=== PATIENT | female | born 1950 | race Caucasian/White ===

== ENCOUNTER 2021-03-15 18:34 | Inpatient (IN) ==
[2021-03-15] MEDS ORDERED: Naloxone 0.4 MG/ML INJ IVP PRN (23:51)
[2021-03-15] MEDS ORDERED: Acetaminophen 325 MG TABLET PO PRN (23:51)
[2021-03-16] MEDS: Ondansetron 4 MG/2 ML VIAL IVP PRN ×3 (00:47→23:01)
[2021-03-16] MEDS ORDERED: *HR* Dextrose 50 % in Water (Vial) 50 ML VIAL IVP PRN (01:15)
[2021-03-16] MEDS ORDERED: Dextrose Gel 15 GM/37.5 ML TUBE PO PRN ×2 (01:15)
[2021-03-16] MEDS ORDERED: D5% in Water 1,000 ML IVC PRN (01:15)
[2021-03-16] MEDS: 0.9 % Sodium Chloride 1,000 ML IVC SCH ×2 (01:51→08:52)
[2021-03-16] MEDS: Insulin LISPRO 300 UNITS/3 ML VIAL SUBQ SCH ×5 (01:54→21:35)
[2021-03-16] MEDS ORDERED: *HR* Promethazine 25 MG/ML VIAL IM ONE ×2 (02:57→14:00)
[2021-03-16] MEDS: Pantoprazole 40 MG VIAL IVP SCH ×2 (05:49→17:45)
[2021-03-16] MEDS: Doxycycline 100 MG in 0.9 % Sodium Chloride Mini Bag 100 ML IVPB SCH ×2 (05:50→17:45)
[2021-03-16 07:26] LABS: Basophils # 0.1 K/mcL (0.0-0.2); Basophils % 0.6 %; Eosinophils % 0.2 %; Hematocrit 21.7 % (35.3-44.9); Hemoglobin 6.9 g/dL (11.5-15.4); Immature Granulocytes % 0.6 % (0-4); Lymphocytes # 1.4 K/mcL (0.6-4.6); Lymphocytes % 13.6 %; Mean Corpuscular HGB Conc 31.8 g/dL (31.6-35.5); Mean Corpuscular Hemoglobin 25.9 pg (28.0-33.3); Mean Corpuscular Volume 81.6 fL (83.0-100.0); Mean Platelet Volume 9.9 fL (9.4-12.4); Monocytes # 0.8 K/mcL (0.0-1.3); Monocytes % 7.8 %; Neutrophils # 7.8 K/mcL (1.6-8.9); Nucleated Red Blood Cells 0.2 /100 WBC (0); Platelet Count 363 K/mcL (140-400); Red Blood Count 2.66 M/mcL (3.82-4.97); Red Cell Distribution Width 20.5 % (11.5-14.5); Segmented Neutrophils % 77.2 %; White Blood Count 10.1 K/mcL (4.3-11.1)
[2021-03-16 07:39] LABS: INR 1.2; Prothrombin Time 13.6 Seconds (9.4-12.1)
[2021-03-16 08:14] LABS: Albumin 2.8 g/dL (3.5-5.7); Albumin/Globulin Ratio 0.9 (1.1-2.2); Bilirubin,Total 0.2 mg/dL (0.3-1.0); Calcium 8.2 mg/dL (8.6-10.3); Globulin 3.1 g/dL (2.4-3.5); Magnesium 1.3 mg/dL (1.6-2.6); Potassium 4.1 mEq/L (3.5-5.1); Total Protein 5.9 g/dL (6.4-8.9)
[2021-03-16] MEDS ORDERED: 0.9 % Sodium Chloride 250 ML IVC SCH (08:45)
[2021-03-16] MEDS: Fluconazole 400 MG/200 ML 400 MG/200 ML BAG IVPB SCH (08:51)
[2021-03-16 18:51] LABS: Influenza A PCR Negative (Negative); Influenza B PCR Negative (Negative); Resp. Syncytial Virus PCR Negative (Negative)
[2021-03-16 18:52] LABS: SARS-CoV-2 by PCR (In House) Negative (Negative)
[2021-03-16 20:09] LABS: Hematocrit 24.2 % (35.3-44.9); Hemoglobin 7.8 g/dL (11.5-15.4)
[2021-03-17] MEDS ORDERED: Metoclopramide 10 MG/2 ML VIAL IVP ONE (04:24)
[2021-03-17] MEDS: Pantoprazole 40 MG VIAL IVP SCH ×2 (05:27→17:54)
[2021-03-17] MEDS: Doxycycline 100 MG in 0.9 % Sodium Chloride Mini Bag 100 ML IVPB SCH ×2 (05:27→17:52)
[2021-03-17] MEDS: Insulin LISPRO 300 UNITS/3 ML VIAL SUBQ SCH ×4 (07:59→23:09)
[2021-03-17] MEDS: Ondansetron 4 MG/2 ML VIAL IVP PRN ×2 (10:03→19:32)
[2021-03-17] MEDS: Fluconazole 400 MG/200 ML 400 MG/200 ML BAG IVPB SCH (10:03)
[2021-03-17] MEDS ORDERED: *HR* Propofol 200 MG/20 ML VIAL IVP ONE (11:17)
[2021-03-17] MEDS ORDERED: *HR* Promethazine 25 MG/ML VIAL IM PRN (11:37)
[2021-03-18] MEDS ORDERED: Prochlorperazine 10 MG/2 ML VIAL IVP PRN ×2 (00:45→11:34)
[2021-03-18 05:09] LABS: Basophils # 0.1 K/mcL (0.0-0.2); Basophils % 0.7 %; Eosinophils # 0.1 K/mcL (0.0-0.6); Eosinophils % 1.2 %; Hematocrit 24.3 % (35.3-44.9); Immature Granulocytes % 0.3 % (0-4); Lymphocytes # 1.6 K/mcL (0.6-4.6); Lymphocytes % 22.9 %; Mean Corpuscular HGB Conc 32.9 g/dL (31.6-35.5); Mean Corpuscular Hemoglobin 27.5 pg (28.0-33.3); Mean Corpuscular Volume 83.5 fL (83.0-100.0); Mean Platelet Volume 9.6 fL (9.4-12.4); Monocytes # 0.7 K/mcL (0.0-1.3); Monocytes % 10.3 %; Neutrophils # 4.4 K/mcL (1.6-8.9); Platelet Count 340 K/mcL (140-400); Red Blood Count 2.91 M/mcL (3.82-4.97); Red Cell Distribution Width 19.1 % (11.5-14.5); Segmented Neutrophils % 64.6 %; White Blood Count 6.9 K/mcL (4.3-11.1)
[2021-03-18 05:18] LABS: Calcium 8.4 mg/dL (8.6-10.3); Potassium 3.9 mEq/L (3.5-5.1)
[2021-03-18] MEDS: Pantoprazole 40 MG VIAL IVP SCH ×2 (05:25→16:41)
[2021-03-18] MEDS: Doxycycline 100 MG in 0.9 % Sodium Chloride Mini Bag 100 ML IVPB SCH ×2 (05:25→16:41)
[2021-03-18] MEDS: Ondansetron 4 MG/2 ML VIAL IVP PRN ×2 (06:58→16:42)
[2021-03-18] MEDS: Fluconazole 400 MG/200 ML 400 MG/200 ML BAG IVPB SCH (08:04)
[2021-03-18] MEDS: Insulin LISPRO 300 UNITS/3 ML VIAL SUBQ SCH ×4 (08:05→20:35)
[2021-03-18] MEDS ORDERED: Ringers Solution, Lactated 1,000 ML IVC SCH (14:15)
[2021-03-18 14:59] LABS: Hematocrit 25.8 % (35.3-44.9)
[2021-03-18] MEDS: Prochlorperazine 10 MG/2 ML VIAL IVP PRN (20:45)
[2021-03-19] MEDS ORDERED: Prochlorperazine 10 MG/2 ML VIAL IVP PRN
[2021-03-19] MEDS: Pantoprazole 40 MG VIAL IVP SCH ×2 (04:11→17:36)
[2021-03-19] MEDS: Prochlorperazine 10 MG/2 ML VIAL IVP PRN ×4 (04:11→23:30)
[2021-03-19] MEDS: Doxycycline 100 MG in 0.9 % Sodium Chloride Mini Bag 100 ML IVPB SCH ×2 (04:12→17:35)
[2021-03-19] MEDS: Insulin LISPRO 300 UNITS/3 ML VIAL SUBQ SCH ×4 (07:54→20:41)
[2021-03-19] MEDS: Fluconazole 400 MG/200 ML 400 MG/200 ML BAG IVPB SCH (08:20)
[2021-03-19] MEDS ORDERED: *HR* LORazepam 2 MG/ML VIAL IVP PRN (09:44)
[2021-03-19 10:08] LABS: Basophils # 0.1 K/mcL (0.0-0.2); Basophils % 0.7 %; Eosinophils # 0.1 K/mcL (0.0-0.6); Eosinophils % 1.3 %; Hematocrit 23.5 % (35.3-44.9); Hemoglobin 7.6 g/dL (11.5-15.4); Immature Granulocytes % 0.3 % (0-4); Lymphocytes # 1.4 K/mcL (0.6-4.6); Mean Corpuscular HGB Conc 32.3 g/dL (31.6-35.5); Mean Corpuscular Hemoglobin 27.3 pg (28.0-33.3); Mean Corpuscular Volume 84.5 fL (83.0-100.0); Mean Platelet Volume 9.9 fL (9.4-12.4); Monocytes # 0.7 K/mcL (0.0-1.3); Monocytes % 10.2 %; Neutrophils # 4.9 K/mcL (1.6-8.9); Nucleated Red Blood Cells 0.3 /100 WBC (0); Platelet Count 308 K/mcL (140-400); Red Blood Count 2.78 M/mcL (3.82-4.97); Red Cell Distribution Width 19.2 % (11.5-14.5); Segmented Neutrophils % 68.5 %; White Blood Count 7.2 K/mcL (4.3-11.1)
[2021-03-19 10:30] LABS: Calcium 8.4 mg/dL (8.6-10.3); Potassium 3.7 mEq/L (3.5-5.1)
[2021-03-19] MEDS: Haloperidol Lactate 5 MG/ML VIAL IVP PRN (13:59)
[2021-03-19] MEDS ORDERED: Ringers Solution, Lactated 1,000 ML IVC SCH (15:30)
[2021-03-19] MEDS: *HR* Promethazine 25 MG/ML VIAL IM PRN (21:23)
[2021-03-20] MEDS: Doxycycline 100 MG in 0.9 % Sodium Chloride Mini Bag 100 ML IVPB SCH ×2 (05:37→17:07)
[2021-03-20] MEDS: Pantoprazole 40 MG VIAL IVP SCH ×2 (05:37→17:07)
[2021-03-20] MEDS: Prochlorperazine 10 MG/2 ML VIAL IVP PRN ×3 (05:38→17:56)
[2021-03-20 06:41] LABS: Basophils # 0.1 K/mcL (0.0-0.2); Basophils % 0.6 %; Eosinophils # 0.1 K/mcL (0.0-0.6); Eosinophils % 1.3 %; Hematocrit 28.3 % (35.3-44.9); Hemoglobin 9.5 g/dL (11.5-15.4); Immature Granulocytes % 0.6 % (0-4); Lymphocytes # 1.9 K/mcL (0.6-4.6); Lymphocytes % 22.6 %; Mean Corpuscular HGB Conc 33.6 g/dL (31.6-35.5); Mean Corpuscular Hemoglobin 27.9 pg (28.0-33.3); Mean Platelet Volume 10.2 fL (9.4-12.4); Monocytes % 11.3 %; Neutrophils # 5.5 K/mcL (1.6-8.9); Nucleated Red Blood Cells 0.2 /100 WBC (0); Platelet Count 283 K/mcL (140-400); Red Blood Count 3.41 M/mcL (3.82-4.97); Red Cell Distribution Width 17.5 % (11.5-14.5); Segmented Neutrophils % 63.6 %; White Blood Count 8.6 K/mcL (4.3-11.1)
[2021-03-20 07:05] LABS: Calcium 8.4 mg/dL (8.6-10.3); Potassium 3.6 mEq/L (3.5-5.1)
[2021-03-20] MEDS: Fluconazole 400 MG/200 ML 400 MG/200 ML BAG IVPB SCH (08:51)
[2021-03-20] MEDS: *HR* Promethazine 25 MG/ML VIAL IM PRN ×2 (08:51→17:07)
[2021-03-20] MEDS: Insulin LISPRO 300 UNITS/3 ML VIAL SUBQ SCH ×4 (08:52→21:35)
[2021-03-20] MEDS: Mirtazapine 15 MG TABLET PO SCH ×2 (11:31→21:35)
[2021-03-20] MEDS: Ringers Solution, Lactated 1,000 ML IVC SCH (14:36)
[2021-03-20] MEDS: Haloperidol Lactate 5 MG/ML VIAL IVP PRN (21:34)
[2021-03-20] MEDS ORDERED: Sucralfate 1 GM TABLET PO SCH (22:00)
[2021-03-20] MEDS ORDERED: *HR* Metoprolol 5 MG/5 ML VIAL IVP ONE (22:39)
[2021-03-21] MEDS: Prochlorperazine 10 MG/2 ML VIAL IVP PRN ×2 (01:19→09:17)
[2021-03-21] MEDS: Doxycycline 100 MG in 0.9 % Sodium Chloride Mini Bag 100 ML IVPB SCH ×2 (04:51→18:08)
[2021-03-21] MEDS: Ringers Solution, Lactated 1,000 ML IVC SCH (04:51)
[2021-03-21] MEDS: Pantoprazole 40 MG VIAL IVP SCH ×2 (04:52→18:08)
[2021-03-21] MEDS: Haloperidol Lactate 5 MG/ML VIAL IVP PRN ×2 (04:52→12:26)
[2021-03-21 06:11] LABS: Basophils % 0.4 %; Eosinophils # 0.1 K/mcL (0.0-0.6); Eosinophils % 1.5 %; Hematocrit 27.3 % (35.3-44.9); Hemoglobin 9.1 g/dL (11.5-15.4); Immature Granulocytes % 0.5 % (0-4); Lymphocytes # 1.7 K/mcL (0.6-4.6); Mean Corpuscular HGB Conc 33.3 g/dL (31.6-35.5); Mean Corpuscular Hemoglobin 28.2 pg (28.0-33.3); Mean Corpuscular Volume 84.5 fL (83.0-100.0); Mean Platelet Volume 9.8 fL (9.4-12.4); Monocytes % 12.8 %; Neutrophils # 4.7 K/mcL (1.6-8.9); Platelet Count 255 K/mcL (140-400); Red Blood Count 3.23 M/mcL (3.82-4.97); Segmented Neutrophils % 61.8 %; White Blood Count 7.5 K/mcL (4.3-11.1)
[2021-03-21 06:31] LABS: Calcium 8.3 mg/dL (8.6-10.3); Potassium 3.7 mEq/L (3.5-5.1)
[2021-03-21] MEDS: Insulin LISPRO 300 UNITS/3 ML VIAL SUBQ SCH ×4 (08:06→20:07)
[2021-03-21] MEDS: Fluconazole 400 MG/200 ML 400 MG/200 ML BAG IVPB SCH (09:17)
[2021-03-21] MEDS: Prochlorperazine 10 MG/2 ML VIAL IVP SCH (16:19)
[2021-03-21] MEDS: *HR* Promethazine 25 MG/ML VIAL IM SCH (16:20)
[2021-03-21] MEDS ORDERED: *HR* Metoprolol 5 MG/5 ML VIAL IVP PRN (20:08)
[2021-03-21] MEDS ORDERED: Acetaminophen IV 1,000 MG/100 ML BAG IVPB ONE (20:12)
[2021-03-21] MEDS: Mirtazapine 15 MG TABLET PO SCH (21:37)
[2021-03-21] MEDS ORDERED: 0.9 % Sodium Chloride 1,000 ML IV ONE (23:05)
[2021-03-21] MEDS ORDERED: 0.9 % Sodium Chloride 1,000 ML ONE (23:13)
[2021-03-22] MEDS: Prochlorperazine 10 MG/2 ML VIAL IVP SCH ×4 (00:28→17:37)
[2021-03-22] MEDS: *HR* Promethazine 25 MG/ML VIAL IM SCH ×2 (00:31→07:54)
[2021-03-22] MEDS ORDERED: 0.9 % Sodium Chloride 1,000 ML IV ONE (01:37)
[2021-03-22 05:46] LABS: Basophils % 0.4 %; Eosinophils # 0.1 K/mcL (0.0-0.6); Eosinophils % 0.8 %; Hematocrit 27.5 % (35.3-44.9); Hemoglobin 8.9 g/dL (11.5-15.4); Lymphocytes # 0.9 K/mcL (0.6-4.6); Lymphocytes % 9.7 %; Mean Corpuscular HGB Conc 32.4 g/dL (31.6-35.5); Mean Corpuscular Hemoglobin 27.7 pg (28.0-33.3); Mean Corpuscular Volume 85.7 fL (83.0-100.0); Mean Platelet Volume 10.4 fL (9.4-12.4); Monocytes # 1.1 K/mcL (0.0-1.3); Platelet Count 237 K/mcL (140-400); Red Blood Count 3.21 M/mcL (3.82-4.97); Red Cell Distribution Width 17.9 % (11.5-14.5); Segmented Neutrophils % 76.1 %; White Blood Count 9.2 K/mcL (4.3-11.1)
[2021-03-22 06:01] LABS: Calcium 7.7 mg/dL (8.6-10.3); Potassium 3.6 mEq/L (3.5-5.1)
[2021-03-22] MEDS: Doxycycline 100 MG in 0.9 % Sodium Chloride Mini Bag 100 ML IVPB SCH (06:10)
[2021-03-22] MEDS: Pantoprazole 40 MG VIAL IVP SCH ×2 (06:11→17:37)
[2021-03-22 06:32] LABS: Anisocytosis 1+ (Not Present); Poikilocytosis 1+ (Not Present)
[2021-03-22 06:33] LABS: Platelet Estimate Normal (Normal)
[2021-03-22] MEDS: Insulin LISPRO 300 UNITS/3 ML VIAL SUBQ SCH ×4 (07:54→20:12)
[2021-03-22] MEDS: Ondansetron ODT 4 MG TAB.RAPDIS SL SCH (14:39)
[2021-03-22] MEDS: Sucralfate 1 GM TABLET PO SCH ×2 (14:40→20:13)
[2021-03-22] MEDS ORDERED: Acetaminophen IV 1,000 MG/100 ML BAG IVPB ONE (19:59)
[2021-03-22] MEDS: Mirtazapine 15 MG TABLET PO SCH (20:12)
[2021-03-23] MEDS: Prochlorperazine 10 MG/2 ML VIAL IVP SCH ×5 (00:31→23:37)
[2021-03-23] MEDS: Ondansetron ODT 4 MG TAB.RAPDIS SL SCH (00:33)
[2021-03-23] MEDS: Pantoprazole 40 MG VIAL IVP SCH ×2 (05:18→17:57)
[2021-03-23 06:57] LABS: Basophils % 0.4 %; Eosinophils # 0.1 K/mcL (0.0-0.6); Eosinophils % 0.6 %; Hematocrit 27.1 % (35.3-44.9); Immature Granulocytes % 0.9 % (0-4); Lymphocytes # 1.4 K/mcL (0.6-4.6); Lymphocytes % 15.4 %; Mean Corpuscular HGB Conc 33.2 g/dL (31.6-35.5); Mean Corpuscular Hemoglobin 28.2 pg (28.0-33.3); Mean Platelet Volume 10.7 fL (9.4-12.4); Monocytes # 1.1 K/mcL (0.0-1.3); Monocytes % 11.5 %; Neutrophils # 6.6 K/mcL (1.6-8.9); Nucleated Red Blood Cells 0.2 /100 WBC (0); Platelet Count 225 K/mcL (140-400); Red Blood Count 3.19 M/mcL (3.82-4.97); Red Cell Distribution Width 18.6 % (11.5-14.5); Segmented Neutrophils % 71.2 %; White Blood Count 9.3 K/mcL (4.3-11.1)
[2021-03-23 07:18] LABS: Calcium 7.7 mg/dL (8.6-10.3); Potassium 3.7 mEq/L (3.5-5.1)
[2021-03-23 07:52] LABS: Platelet Estimate Normal (Normal); Reactive Lymphocytes Present (Not Present)
[2021-03-23] MEDS ORDERED: 0.9 % Sodium Chloride 1,000 ML IVC SCH (08:00)
[2021-03-23] MEDS: Sucralfate 1 GM TABLET PO SCH (08:02)
[2021-03-23] MEDS: Insulin LISPRO 300 UNITS/3 ML VIAL SUBQ SCH ×4 (08:03→21:37)
[2021-03-23] MEDS: Haloperidol Lactate 5 MG/ML VIAL IVP PRN (09:00)
[2021-03-23] MEDS: Ondansetron 4 MG/2 ML VIAL IVP PRN ×2 (09:02→21:41)
[2021-03-23] MEDS: Mirtazapine 15 MG TABLET PO SCH (19:55)
[2021-03-24] MEDS: Haloperidol Lactate 5 MG/ML VIAL IVP PRN ×2 (01:51→12:05)
[2021-03-24] MEDS: Pantoprazole 40 MG VIAL IVP SCH (05:42)
[2021-03-24] MEDS: Prochlorperazine 10 MG/2 ML VIAL IVP SCH ×2 (05:50→12:06)
[2021-03-24] MEDS: Insulin LISPRO 300 UNITS/3 ML VIAL SUBQ SCH (07:36)
[2021-03-24 10:59] VITALS: BP 140/73
== END 2021-03-24 11:47 | disposition short-term general hospital (02) | DRG 377 ==
LOC: CDU → SUATTDRO 23:04 → 3BNU 03-17 19:27
PROVIDERS: ADMIT Internal Medicine; ATTEND Student in an Organized Health Care Education/Training Program